=== PATIENT | female | born 1965 | race Caucasian/White ===

== ENCOUNTER 2017-03-10 19:20 | Emergency (ER) | payer OTHER ==
[~2017-03-10] VITALS: Ht 149.9 cm; Wt 84.6 kg
[2017-03-10 19:45] VITALS: BP 134/94
[2017-03-10] MEDS ORDERED: IBUPROFEN 200 MG TABLET ONE (20:18)
[2017-03-10] MEDS ORDERED: IBUPROFEN 200 MG TABLET PO ONE (20:30)
== END 2017-03-10 21:21 | disposition home or self-care (01) ==
LOC: ED 21:15
DX: S50.02XA Contusion of left elbow, initial encounter (principal); M25.512 Pain in left shoulder; Z88.8 Allergy status to other drugs, medicaments and biological substances; Z88.0 Allergy status to penicillin; W19.XXXA Unspecified fall, initial encounter; Y93.89 Activity, other specified; Y92.89 Other specified places as the place of occurrence of the external cause; Y99.8 Other external cause status
CPT/HCPCS: 99284